=== PATIENT | male | born 1970 | race Hispanic/Latino ===

== ENCOUNTER 2017-06-21 22:21 | Emergency (ER) | payer MEDICAID ==
[2017-06-21 22:43] VITALS: BP 147/85; PULSE 85; TEMP 98.5; O2SAT 96
--- NOTE | 2017-06-21 23:29 | C.PDOC ---
History Of Present Illness 46yo male, presents to ED for evaluation of right foot pain after he injured the foot while attempting to break a fall. Patient states he was walking down the stairs when he missed 2 steps and while attempting to stop himself from falling, landed on his right foot, sustaining injuries to his 2nd, 3rd and 4th toes. He denies any weakness, numbness, tingling or ankle pain. No other complaints. Time Seen by Provider: 06/21/17 22:44 Chief Complaint (Nursing): Lower Extremity Problem/Injury History Per: Patient History/Exam Limitations: no limitations Current Symptoms Are (Timing): Still Present Additional History Per: Patient Past Medical History Reviewed: Historical Data, Nursing Documentation, Vital Signs Vital Signs: Last Vital Signs Temp 98.5 F 06/21/17 22:39 Pulse 85 06/21/17 22:39 Resp 20 06/21/17 23:50 BP 147/85 06/21/17 22:39 Pulse Ox 96 06/22/17 02:47 - Medical History PMH: No Chronic Diseases Surgical History: Appendectomy (1982) Family History: States: Unknown Family Hx - Social History Hx Alcohol Use: Yes Hx Substance Use: No Review Of Systems Except As Marked, All Systems Reviewed And Found Negative. Constitutional: Negative for: Fever, Chills Musculoskeletal: Positive for: Foot Pain Neurological: Negative for: Weakness, Numbness Physical Exam - Physical Exam Appears: Non-toxic, No Acute Distress Skin: Normal Color, Warm, Dry, Ecchymosis (noted to right 2nd and 3rd toes. ecchymosis noted to mid plantar aspect of right foot) Head: Atraumatic, Normacephalic Eye(s): bilateral: Normal Inspection, PERRL Oral Mucosa: Moist Neck: Normal ROM, Supple Extremity: Tenderness (tenderness to right 3rd and 4th MTP area. ), No Pedal Edema, No Calf Tenderness, Capillary Refill (<2 sec), No Deformity, No Swelling Neurological/Psych: Oriented x3, Normal Motor, Normal Sensation Gait: Steady (able to ambulate with pain) ED Course And Treatment O2 Sat by Pulse Oximetry: 96 (RA) Pulse Ox Interpretation: Normal - Other Rad XR Right Foot X-Ray: Interpreted by Me, Viewed By Me Interpretation: Fracture noted to right 4th MTP, and cuneiform bone. Progress Note: XR reviewed and patient placed in ortho shoe, and given crutches for support. Patient instructed on proper crutch use and will follow up with podiatry in 2-3 days. 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 - Scribe Statement The provider has reviewed the documentation as recorded by the Scribe (Emmy Tidwell) Provider Attestation: All medical record entries made by the Scribe were at my direction and personally dictated by me. I have reviewed the chart and agree that the record accurately reflects my personal performance of the history, physical exam, medical decision making, and the department course for this patient. I have also personally directed, reviewed, and agree with the discharge instructions and disposition.
[2017-06-21 23:50] VITALS: RESP 20
--- NOTE | 2017-06-22 08:28 | RAD ---
PROCEDURE: Right Foot Radiographs. HISTORY: R/O FX COMPARISON: None. FINDINGS: BONES: Comminuted minimally displaced fracture 4th metatarsal head. No other fracture identified. JOINTS: Normal. SOFT TISSUES: Normal. OTHER FINDINGS: None. IMPRESSION: Comminuted fracture 4th metatarsal head.
== END 2017-06-21 23:49 | disposition home or self-care (01) ==
LOC: C.ER 22:21
DX: S92.341A Displaced fracture of fourth metatarsal bone, right foot, initial encounter for closed fracture (principal); W10.9XXA Fall (on) (from) unspecified stairs and steps, initial encounter